=== PATIENT | female | born 1980 | race Caucasian/White ===

== ENCOUNTER 2017-01-02 11:23 | Emergency (ER) | payer BC ==
[~2017-01-02 11:23] MED LIST: ARGININE500 MG PO; ATIVAN2 MG/1 ML IV; BENADRYL-DPS50 MG/ML PO; CORTEF DPS5 MG PO; FISH OIL PO; LECITHIN1200 M1 PO; MARINOL10 MG PO; MOTRIN IB200 MG PO; MOTRIN-DPS800 MG PO; NITROSTAT0.4 MG SL; NORCO 5-325 TA1 EACH PO; SODIUM CHLORID500 ML IV; SOLU-CORTEF100 M1 IV; TYLENOL DPS325 MG PO; UBIQUINOL100 MG PO; VALIUM-DPS10 MG PO; VITAMIN D310000 UNIT PO; ZOFRAN DPS4 MG/2 ML IV; ZOFRAN ODT4 MG PO
--- NOTE | 2017-01-20 11:52 | ER ---
ADMIT: 01/02/2017 RM/LOC: [facility] MR#: [id number] [id number] [place], [place] [address] DOUG MENDES [address] [place] [address] Emergency Room Report SEX: F AGE: 36 : 1980 DATE: 01/02/2017 ADDENDUM: This is a 36-year-old white female with a complex history going back many years. 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 She also had autoimmune encephalitis, recurrent seizure activity, multiple fainting spells. She also had Arnold-Chiari malformation decompression with multiple shunts for pseudotumor and multiple revisions, etc. Today, she had been discharged from [facility], where they had done a muscle biopsy of her right thigh. It was a little red. She was complaining of the pain, so she came in. She is also concerned about being septic. We did work her up overall and that proved not to be the problem. At this time, we decided to just treat her aggressively and I gave her 450 of clindamycin IV and then with that, we put her on a 300 q.6 as an outpatient. She does have kind of a chronic pain syndrome, so we gave her Dilaudid 1 mg IV. Also, she had seizure- like activity while she was here, we gave her 5 of morphine and she seemed to do quite well with that. At this time, she has hydrocodone, they had given her 25, I said she can up it to 2 every 6 hours, we had to give her another 25. She was much more comfortable. [facility] to look at her wound later on the week. CONDITION ON DISCHARGE: Improved. Gerald Robert MD/ arleth JOB #: [id number] CC: Gerald Robert MD, Attending Physician
== END 2017-01-02 16:20 | disposition home or self-care (01) ==
LOC: ER 11:23
DX: L03.115 Cellulitis of right lower limb (principal); Z88.2 Allergy status to sulfonamides; Z88.8 Allergy status to other drugs, medicaments and biological substances; Z79.899 Other long term (current) drug therapy

== ENCOUNTER 2017-01-05 16:41 | Emergency (ER) | payer BC ==
--- NOTE | 2017-01-20 11:52 | ER ---
ADMIT: 01/05/2017 RM/LOC: ER [facility] MR#: [id number] [id number] [place], [place] [address] MENDESDOUG [address] [place] [address] Emergency Room Report SEX: F AGE: 36 : 1980 DATE: 01/05/2017 ADDENDUM: A 36-year-old white female coming in with multiple comorbidities, essentially seizure, chronic pain. She also has some mitochondrial dysfunction. She has been followed at the [facility] for. At this time, we gave her a total of 10 of Valium IV. She had a little of Dilaudid. This is pretty much helped her, and she is calmed down. We did this about 3 days ago too, and this seemed to help her. She has good follow up with [facility], and her primary is not changing any other medications except she takes clonazepam maybe twice a day I said, gave it to her t.i.d. and maybe that will stop things. CONDITION ON DISCHARGE: Improved. Gerald Robert MD/ arleth JOB #: [id number] CC: Gerald Robert MD, Attending Physician Gloria Mandujano, Family Physician
== END 2017-01-05 20:10 | disposition home or self-care (01) ==
LOC: ER 16:41
DX: G40.409 Other generalized epilepsy and epileptic syndromes, not intractable, without status epilepticus (principal); Z88.2 Allergy status to sulfonamides; Z88.8 Allergy status to other drugs, medicaments and biological substances; Z79.899 Other long term (current) drug therapy

== ENCOUNTER 2017-01-08 15:02 | Emergency (ER) | payer BC ==
--- NOTE | ~2017-01-08 | ER ---
ADMIT: 01/08/2017 RM/LOC: ER [facility] MR#: [id number] [id number] [place], [place] [address] DOUG MENDES [address] [place] [address] Emergency Room Report SEX: F AGE: 36 : 1980 DATE: 01/08/2017 ADDENDUM: See T-sheet for complete H and P. A 36-year-old female, comes in with symptoms consistent with anxiety and grief response. She was also requesting refill of her chronic pain medications which I am not comfortable doing. I did offer her 5 mg of Valium p.o., and told her she is to follow up with her primary provider who provides her pain medication. DIAGNOSES: 1. Grief response. 2. Anxiety. Eric Peralta MD/ arleth JOB #: [id number] CC: Eric Peralta MD, Attending Physician
--- NOTE | 2017-01-16 14:01 | ER ---
ADMIT: 01/08/2017 RM/LOC: ER [facility] MR#: [id number] [id number] [place], [place] [address] DOUG MENDES [address] [place] [address] Emergency Room Report SEX: F AGE: 36 : 1980 DATE: 01/08/2017 CHIEF COMPLAINT: Right thigh pain, weakness and dizziness. HISTORY OF PRESENT ILLNESS: This is a 36-year-old, white female, who presents to the department for evaluation of her right leg. The patient states she had a muscle biopsy completed a week ago at [facility]. The patient states that a neurosurgeon completed this. Her primary neurologist is Dr. Brooks Garibay at [facility]. The patient does have a history of some adrenocortical insufficiency. The patient states that due to her dizziness and weakness, she did take some extra Cortef today, which she states did not improve her status. She also tried to use some ibuprofen for pain. She complains of gross pain all about her right thigh and left lower leg. The patient states she is experiencing weakness and dizziness. She was seen by Dr. Robert on January 02 and given a script for clindamycin secondary to concerns of a soft tissue infection about her biopsy site as well as hydrocodone #25. Per documentation, she was to follow up with her primary care provider or her neurologist in [place] for continued management of her pain. COURSE IN THE ER: I did see the patient at bedside. Her friend was also with her in the room. They communicated to me their concerns of her pain as well as the surgical site on her right side. The incision site on her right side appears to be healing well. There is no erythema. There is no evidence of drainage. She is currently continuing on her course of clindamycin as previously prescribed by Dr. Robert. I have no concerns of infection about this site. She did recently have her intubated secondary to overdose attempt. The patient states she thinks her used the rest of her pain medication. She states that she has not followed up with her primary care provider and that she has sent message in the patient portal for [facility] to her neurologist but had not heard back yet. I engaged the patient in a conversation about the plan of care as established by Dr. Robert to include the brief duration of pain medication with close followup by her primary care provider or neurologist for further refills and management of her pain. I told her I was not comfortable continuing her opioid pain medications as she had not followed up in the week duration since her previous prescription for pain medication. I told her my concerns that a lot of this was anxiety driven due ADMIT: 01/08/2017 RM/LOC: [facility] MR#: [id number] [address] [id number] [place] [address] Emergency Room Report SEX: F AGE: 36 : 1980 to the recent hospitalization of her . At this time, patient's friend did request to speak with my supervising physician. I did notify Dr. Peralta,who spoke to the patient. She was given 5 of Valium p.o. and discharged from the department. IMPRESSION: 1. Secondary grief response. 2. Anxiety. DISPOSITION: The patient was seen and examined by Dr. Peralta, who agreed with my results and findings, encouraged her to follow up with primary care and discharged from the department in stable condition. MILADY Jones / Eric Peralta MD / arleth JOB #: [id number] CC: Eric Peralta MD, Attending Physician Gloria Mandujano APRN, Family Physician
== END 2017-01-08 16:40 | disposition home or self-care (01) ==
LOC: ER 15:02
DX: F41.9 Anxiety disorder, unspecified (principal); F43.21 Adjustment disorder with depressed mood; M79.651 Pain in right thigh; F17.210 Nicotine dependence, cigarettes, uncomplicated; Z88.1 Allergy status to other antibiotic agents; Z88.2 Allergy status to sulfonamides; Z88.8 Allergy status to other drugs, medicaments and biological substances; Z79.899 Other long term (current) drug therapy

== ENCOUNTER 2017-02-05 13:09 | Emergency (ER) | payer BC ==
--- NOTE | 2017-02-11 08:44 | ER ---
ADMIT: 02/05/2017 RM/LOC: ER [facility] MR#: [id number] [address] [place], [place] [address] DOUG MENDES [address] [place] [address] Emergency Room Report SEX: F AGE: 36 : 1980 DATE: 02/05/2017 TIME: 1309 hours. Please refer to my T-sheet for complete H and P. HISTORY OF PRESENT ILLNESS: Briefly, the patient is a 36-year-old, who is known well to the emergency room. 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 She comes in with left arm and left leg weakness and facial weakness, she has had this before. It has been going on for couple hours. No pain. PHYSICAL EXAMINATION: VITAL SIGNS: Stable. HEENT: She does have a left facial droop. NEUROLOGIC: Left arm and left leg are weak. EMERGENCY DEPARTMENT COURSE: CT head showed no acute changes. Chest x-ray negative. CBC normal. Chemistries normal. Coags are normal. BMP was 128. Chest x-ray was negative. EKG was sinus rhythm, no changes. We gave her Ativan x2 doses, liter of normal saline bolus. She had no improvement. She has a very complex history in that she has had stroke-like symptoms multiple times that have been considered functional by [address] Cheatham knew her the best, he would accept her to [facility]. He did not recommend any more advanced treatment at this time. ASSESSMENT: Left-sided weakness with a history of such. It has persisted despite some Ativan and fluids. PLAN: Transfer to the care of Dr. Cheatham. Sina Ta MD/ arleth JOB #: [id number] CC: Sina Ta MD, Attending Physician Henry Munoz MD, Family Physician
== END 2017-02-05 18:05 | disposition short-term general hospital (02) ==
LOC: ER 13:09
DX: R53.1 Weakness (principal); R56.9 Unspecified convulsions; Z98.890 Other specified postprocedural states; Z90.49 Acquired absence of other specified parts of digestive tract; Z88.8 Allergy status to other drugs, medicaments and biological substances; Z88.2 Allergy status to sulfonamides; Z88.1 Allergy status to other antibiotic agents; Z79.899 Other long term (current) drug therapy; Z79.01 Long term (current) use of anticoagulants